=== PATIENT | female | born 1985 | race Caucasian/White ===

== ENCOUNTER 2017-11-12 12:10 | Emergency (ER) | payer MEDICAID, OTHER ==
[2017-11-12 13:05] VITALS: BP 134/101; PULSE 68; RESP 18; TEMP 98.2; O2SAT 100
--- NOTE | 2017-11-12 13:09 | C.PDOC ---
History Of Present Illness 32 year old female presents to the ED for evaluation of left knee pain which began after she fell onto her knee while at work yesterday. Patient has been applying icy hot to the area without significant relief. She notes the area appeared slightly swollen this morning and she is having difficulty walking. Patient denies head injury, LOC, extremity numbness/weakness. Time Seen by Provider: 11/12/17 12:41 Chief Complaint (Nursing): Lower Extremity Problem/Injury History Per: Patient History/Exam Limitations: no limitations Onset/Duration Of Symptoms: Hrs Current Symptoms Are (Timing): Still Present Additional History Per: Patient - Knee Description Of Injury: Fell Past Medical History Reviewed: Historical Data, Nursing Documentation, Vital Signs Vital Signs: Last Vital Signs Temp 98.2 F 11/12/17 12:45 Pulse 68 11/12/17 12:45 Resp 18 11/12/17 12:45 BP 134/101 H 11/12/17 12:45 Pulse Ox 100 11/12/17 14:04 - Medical History PMH: Migraine Surgical History: No Surg Hx Family History: States: Stroke, Diabetes, Hypertension - Social History Hx Tobacco Use: No Hx Alcohol Use: Yes (Socially) Hx Substance Use: No - Immunization History Hx Tetanus Toxoid Vaccination: Yes Hx Influenza Vaccination: No Hx Pneumococcal Vaccination: No Review Of Systems Musculoskeletal: Positive for: Other (left knee pain ) Neurological: Negative for: Weakness, Numbness, Other (head injury, LOC) Physical Exam - Physical Exam Appears: Non-toxic, No Acute Distress Skin: Normal Color, Warm, Dry, No Ecchymosis Extremity: No Normal ROM (limited, secondary to pain with flexion of left knee ) , No Tenderness, Capillary Refill (less than 2 seconds ), No Deformity, Swelling (mild, to anterior aspect of left knee ) Neurological/Psych: Normal Speech, Normal Cognition, Normal Sensation Gait: Steady ED Course And Treatment O2 Sat by Pulse Oximetry: 100 (on RA) Pulse Ox Interpretation: Normal Reassessment Condition: Improved Medical Decision Making Medical Decision Making: Impression: 32 year old female with left knee pain Plan: * left knee XR * Motrin PO Progress: Left knee XR reviewed showing no acute fracture effusion or dislocation On reassessment, patient is resting comfortably, showing no signs of distress and reports an improvement in her symptoms. Patient is ambulatory in the ED and is stable for discharge. RN applied knee brace XL. She is advised to follow up with orthopedic care within 1 week for further evaluation and/or return to the ED if symptoms persist or worsen. Disposition Counseled Patient/Family Regarding: Diagnosis, Need For Followup - Disposition Referrals: Rajinder Hoover MD [Medical Doctor] - Disposition: HOME/ ROUTINE Disposition Time: 13:07 Condition: STABLE Additional Instructions: Your xray was normal, no fracture. Please apply ice to area 15 minutes three times a day. Take Motrin as needed for pain every 6 hours, with food to not upset stomach. Follow up with orthopedic if pain persists over one week. Prescriptions: Ibuprofen [Motrin] 600 mg PO Q8 #30 tab Instructions: Knee Pain (ED) Forms: [employer] ([place]), Work Excuse - POA Present On Arrival: None - Clinical Impression Clinical Impression: Knee contusion - PA / VAULT CLERK / Resident Statement MD/DO has reviewed & agrees with the documentation as recorded. - Scribe Statement The provider has reviewed the documentation as recorded by the Scribe (Tara Zambrano) All medical record entries made by the Scribe were at my direction and personally dictated by me. I have reviewed the chart and agree that the record accurately reflects my personal performance of the history, physical exam, medical decision making, and the department course for this patient. I have also personally directed, reviewed, and agree with the discharge instructions and disposition.
--- NOTE | 2017-11-12 15:26 | RAD ---
PROCEDURE: Left Knee Radiographs. HISTORY: Pain. COMPARISON: None. FINDINGS: BONES: Normal. No fracture. JOINTS: Normal. No osteoarthritis. JOINT EFFUSION: Suspicious for small suprapatellar joint effusion. OTHER FINDINGS: None. IMPRESSION: No evidence of acute fracture or dislocation. Small suprapatellar joint effusion.
== END 2017-11-12 13:35 | disposition home or self-care (01) ==
LOC: C.ER 12:10
DX: S80.02XA Contusion of left knee, initial encounter (principal); W18.30XA Fall on same level, unspecified, initial encounter; Y92.89 Other specified places as the place of occurrence of the external cause; Y99.0 Civilian activity done for income or pay